=== PATIENT | female | born 1985 | race Caucasian/White ===

== ENCOUNTER → 2018-02-11 | Outpatient (CLI) | payer OTHER ==
--- NOTE | 2018-02-11 18:33 | US ---
EXAMINATION TYPE: US transvaginal DATE OF EXAM: 02/11/2018 COMPARISON: US CLINICAL HISTORY: N94.6 Dysmenorrhea; menstrual cycle change since change in blood thinner to Xarelto TECHNIQUE: . Transvaginal sonographic images were ordered by physician. Date of LMP: 01/21/2018 EXAM MEASUREMENTS: Uterus: 7.8 x 6.1 x 4.9cm Endometrial Stripe: 1.25 cm Right Ovary: 3.0 x 2.8 x 2.3 cm Left Ovary: 3.2 x 1.6 x 2.2 cm 1. Uterus: Retroverted 2. Endometrium: thickness wnl for day 22 LMP 3. Right Ovary: multiple small follicles are noted with color flow within ovary 4. Left Ovary: multiple small follicles with largest = 0.6 x 0.7 x 0.5cm; color flow is seen within ovary 5. Bilateral Adnexa: wnl 6. Posterior cul-de-sac: small amount of free fluid in posterior cul de sac = 2.2 x 4.1 x 0.4cm. IMPRESSION: Minimal free fluid in the pelvis is probably physiologic. No solid adnexal mass. Normal e ndometrium.
== END | disposition home or self-care (01) ==
LOC: RADUSWWP 16:45
PROVIDERS: ATTEND Family Medicine
DX: N94.10 Unspecified dyspareunia (principal); N94.6 Dysmenorrhea, unspecified
CPT/HCPCS: 76830

== ENCOUNTER → 2019-01-03 | Outpatient (CLI) | payer OTHER ==
--- NOTE | 2019-01-03 18:33 | US ---
EXAMINATION TYPE: US venous doppler duplex LE LT DATE OF EXAM: 01/03/2019 5:38 PM COMPARISON: US 2016 bilateral CLINICAL HISTORY: M79.662 PAIN LFT LEG, R22.42 SWELLING LFT LEG. Pain and swelling left leg. Hx DVT a nd PE. Patient on xarelto. SIDE PERFORMED: Left TECHNIQUE: The lower extremity deep venous system is examined utilizing real time linear array sonog kole with graded compression, doppler sonography and color-flow sonography. VESSELS IMAGED: External Iliac Vein (EIV) Common Femoral Vein Deep Femoral Vein Greater Saphenous Vein * Femoral Vein Popliteal Vein Small Saphenous Vein * Proximal Calf Veins (* superficial vessels) Left Leg: Chronic wall changes seen from proximal calf veins extending superiorly to common femoral vein. Non-occlusive thrombus visualized at these levels. 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 No new or acute th rombus clearly seen.
== END | disposition home or self-care (01) ==
LOC: RADUSWWP 16:58
PROVIDERS: ATTEND Internal Medicine Hematology & Oncology
DX: I82.512 Chronic embolism and thrombosis of left femoral vein (principal)

== ENCOUNTER → 2019-07-18 | Outpatient (CLI) | payer OTHER ==
[2019-07-18 07:54] LABS: Basophils # (A) 0.1 k/uL (0-0.2); Basophils % (A) 2 %; Eosinophils # (A) 0.1 k/uL (0-0.7); Eosinophils % (A) 2 %; HCT 38.1 % (34.0-46.0); HGB 12.1 gm/dL (11.4-16.0); Lymphocytes # (A) 1.9 k/uL (1.0-4.8); Lymphocytes % (A) 38 %; MCH 26.7 pg (25.0-35.0); MCHC 31.9 g/dL (31.0-37.0); MCV 83.8 fL (80.0-100.0); Mean Platelet Volume 7.6; Monocytes # (A) 0.3 k/uL (0-1.0); Monocytes % (A) 6 %; Neutrophils # (A) 2.6 k/uL (1.3-7.7); Neutrophils % (A) 51 %; Platelet Count 310 k/uL (150-450); RBC 4.54 m/uL (3.80-5.40); RDW 15.3 % (11.5-15.5); WBC 5.2 k/uL (3.8-10.6)
== END | disposition home or self-care (01) ==
LOC: LABPAT 07:38
PROVIDERS: ATTEND Obstetrics & Gynecology
DX: Z01.812 Encounter for preprocedural laboratory examination (principal)
CPT/HCPCS: 36415; 85025

== ENCOUNTER 2019-07-25 07:02 | Day surgery (SDC) | payer OTHER ==
[2019-07-20 13:19] VITALS: BMI 37.0
[~2019-07-25 07:02] MED LIST: DEXAMETHASONE SOD PHOSPHATE 10 MG/ML 1 ML VIAL IV ONE; LACTATED RINGERS 1,000 ML IV SCH; LIDOCAINE 1% 20 ML VIAL (10MG/ML) FOR IV START INTRADERMA PRN; MIDAZOLAM 2 MG/2 ML VIAL IV PRN; ONDANSETRON 4 MG/2 ML VIAL IVP ONE; Pre Op ABX Message 1 EACH MISC MISCELLANE ONE; fentaNYL (PF) 50 MCG/ML 2 ML AMP IV PRN
--- NOTE | 2019-07-25 07:54 | P.HPOB ---
History of Present Illness H&P Date: 07/25/19 Chief Complaint: Menorrhagia, family planning, dysmenorrhea 34-year-old presents for D&C, hysteroscopy, endometrial ablation with NovaSure and laparoscopic tubal ligation. Review of Systems All systems: negative Constitutional: Denies chills, Denies fever Eyes: denies blurred vision, denies pain Ears, nose, mouth and throat: Denies headache, Denies sore throat Cardiovascular: Denies chest pain, Denies shortness of breath Respiratory: Denies cough Gastrointestinal: Denies abdominal pain, Denies diarrhea, Denies nausea, Denies vomiting Genitourinary: Denies dysuria, Denies hematuria Musculoskeletal: Denies myalgias Integumentary: Denies pruritus, Denies rash Neurological: Denies numbness, Denies weakness Psychiatric: Denies anxiety, Denies depression Endocrine: Denies fatigue, Denies weight change Past Medical History Past Medical History: Blood Disorder, Deep Vein Thrombosis (DVT), GERD/Reflux, Pulmonary Embolus (PE) Additional Past Medical History / Comment(s): FACTOR 5 - HX OF DVT LEFT LEG & PE X3., STATES SHE MAY HAVE ALPHA -1 ., MIGRAINES, STATES HEAVY PAINFUL MENSTRUAL PERIODS. History of Any Multi-Drug Resistant Organisms: None Reported Past Surgical History: Section, Cholecystectomy, Tonsillectomy Past Anesthesia/Blood Transfusion Reactions: No Reported Reaction, Motion Sickness Past Psychological History: Depression Smoking Status: Never smoker Past Alcohol Use History: Rare Past Drug Use History: None Reported - Past Family History Mother Family Medical History: No Reported History Medications and Allergies Home Medications Medication Instructions Recorded Confirmed Type Cetirizine HCl [Zyrtec] 10 mg PO HS 07/20/19 07/25/19 History Cholecalciferol (Vitamin D3) 2,000 unit PO DAILY 07/20/19 07/25/19 History [Vitamin D3] FLUoxetine HCL [PROzac] 20 mg PO DAILY 07/20/19 07/25/19 History Multivitamins, Thera [Multivitamin 1 tab PO DAILY 07/20/19 07/25/19 History (formulary)] Rivaroxaban [Xarelto] 20 mg PO DAILY 07/20/19 07/25/19 History Allergies Allergy/AdvReac Type Severity Reaction Status Date / Time No Known Allergies Allergy Verified 07/25/19 07:35 Exam Osteopathic Statement: *. No significant issues noted on an osteopathic structural exam other than those noted in the History and Physical/Consult. Vital Signs Temp Pulse Resp BP Pulse Ox 07/25/19 07:32 97.2 F L 71 16 115/68 99 Heart: Regular rate and rhythm Lungs: Clear to auscultation bilaterally Abdomen: Soft, nontender Extremities: Negative Homans sign. Assessment and Plan (1) Family planning Current Visit: Yes Status: Acute Code(s): Z30.09 - ENCOUNTER FOR OT GENERAL CNSL AND ADVICE ON CONTRACEPTION SNOMED Code(s): 533231552 (2) Menorrhagia Current Visit: Yes Status: Acute Code(s): N92.0 - EXCESSIVE AND FREQUENT MENSTRUATION WITH REGULAR CYCLE SNOMED Code(s): 386712404 (3) Factor V Leiden Current Visit: Yes Status: Acute Code(s): D68.51 - ACTIVATED PROTEIN C RESISTANCE SNOMED Code(s): 279048660 Plan: 1. D&C, hysteroscopy, endometrial ablation with NovaSure and laparoscopic tubal ligation 2. She will restart her Xarelto later today or tomorrow morning
[2019-07-25] MEDS ORDERED: SCOPOLAMINE 1.5MG/72HR PATCH TRANSDERM ONE (07:59)
[2019-07-25] MEDS ORDERED: LIDOCAINE 1% INJ 10MG/ML (20 ML MDV) ONE (08:32)
[2019-07-25] MEDS ORDERED: PROPOFOL 10 MG/ML 20 ML VIAL IV ONE (08:32)
[2019-07-25] MEDS ORDERED: GLYCOPYRROLATE 0.2 MG/ML 2 ML VIAL ONE (08:32)
[2019-07-25] MEDS ORDERED: SUCCINYLCHOLINE CHLORIDE VIAL 200 MG/10 ML VIAL IV ONE (08:32)
[2019-07-25] MEDS ORDERED: KETOROLAC 30 MG/ML 1 ML VIAL ONE (08:32)
[2019-07-25] MEDS ORDERED: fentaNYL (PF) 50 MCG/ML 2 ML AMP ONE (08:32)
[2019-07-25] MEDS ORDERED: ROCURONIUM BROMIDE 10 MG/ML 10 ML VIAL IV ONE (08:32)
[2019-07-25] MEDS ORDERED: MIDAZOLAM 2 MG/2 ML VIAL ONE (08:32)
[2019-07-25] MEDS ORDERED: NEOSTIGMINE 1 MG/ML 10 ML VIAL ONE (08:32)
[2019-07-25] MEDS ORDERED: BUPIVACAINE (PF) 0.25% 30 ML VIAL SQ ONE (09:19)
--- NOTE | 2019-07-25 09:33 | P.OP ---
Date of Procedure: 07/25/19 Preoperative Diagnosis: 1. Menorrhagia 2. Family planning Postoperative Diagnosis: 1. Menorrhagia 2. Family planning Procedure(s) Performed: D&C, hysteroscopy, endometrial ablation with NovaSure, laparoscopic tubal ligation Anesthesia: KELTON Surgeon: Akosua Martinez Estimated Blood Loss (ml): 3 IV fluids (ml): 450 Urine output (ml): 100 Pathology: other (Endometrial curettings) Condition: stable Disposition: PACU Operative Findings: Normal uterus, fallopian tubes and ovaries, though the left adnexa is slightly scarred to the left pelvic sidewall. Uterus sounded to 10 cm, cavity length was 6.5 cm, width was 4.8 cm, 172 [address] and time of ablation was 1 minute and 10 seconds. Adequate ablation noted after the NovaSure. Description of Procedure: Patient is taken the operating room where general anesthesia was obtained without difficulty. She was prepped and draped in normal sterile fashion dorsal lithotomy position, legs placed in the candy cane stirrups. Bladder was drained of all urine. Weighted speculum placed in the vagina and the anterior lip the cervix was grasped with serial tooth tenaculum. The uterus sounded to 10 cm and the cervix under 3.5 cm making the cavity length 6.5 cm. The cervix was dilated to #8 Hegar dilator. Hysteroscopy was then performed. Both ostia were visualized and there was a smooth contour of the uterus. Sharp curet was then gently used to obtain endometrial curettings. The NovaSure was introduced into the uterus with a cavity length of 6.5 cm, width 4.8 cm. after cavity assessment was passed, the time of ablation was 70 seconds at 172 W. Hysteroscopy was again performed and adequate ablation was noted. A [employer] manipulator was then placed. Attention was then turned to the abdomen and gloves were changed. A 10 mm infraumbilical incision was made the scalpel and 10 mm optical trocar was placed under direct visualization. A 5 mm suprapubic Incision was made and a 5 mm optical trocar was placed under direct visualization. Survey of the pelvis revealed normal uterus tubes and ovaries, the left adnexa is slightly adhered to the left pelvic sidewall. The left fallopian tube was grasped with a Kleppinger and fulgurated 2-3 cm on this side in the ampullar portion. The right fallopian tube was grasped with a Kleppinger and fulgurated 2-3 cm in the ampullar portion. All instruments were then removed from the abdomen and vagina. The 10 mm infraumbilical incision was closed with 0 Vicryl and the fascial layer and then 4-0 Vicryl in a subcuticular fashion. The 5 mm incision was closed with 4- 0 Vicryl in a subcuticular fashion. Patient tolerated procedure well, sponge and instrument counts correct 2 and she was taken to recovery room in stable condition.
[2019-07-25 09:38] VITALS: TEMP 96.8
[2019-07-25] MEDS ORDERED: LACTATED RINGERS 1,000 ML IV ONE (10:15)
[2019-07-25 10:48] VITALS: PULSE 56; RESP 18
[2019-07-25 11:34] VITALS: BP 98/56
== END 2019-07-25 11:30 | disposition home or self-care (01) ==
LOC: OR 07:02
PROVIDERS: ATTEND Obstetrics & Gynecology
DX: Z30.2 Encounter for sterilization (principal); N92.0 Excessive and frequent menstruation with regular cycle; N94.6 Dysmenorrhea, unspecified; G43.909 Migraine, unspecified, not intractable, without status migrainosus; K21.9 Gastro-esophageal reflux disease without esophagitis; F32.9 Major depressive disorder, single episode, unspecified; D68.51 Activated protein C resistance; Z79.01 Long term (current) use of anticoagulants; Z79.899 Other long term (current) drug therapy; Z90.49 Acquired absence of other specified parts of digestive tract; Z90.89 Acquired absence of other organs; Z86.711 Personal history of pulmonary embolism; Z86.718 Personal history of other venous thrombosis and embolism
CPT/HCPCS: 81025; 58563; 58670; J2250; J0330; J1100; J2710; J2405; J2001; J3010; J1885; J2704; 88305

== ENCOUNTER → 2021-06-05 | Outpatient (CLI) | payer OTHER ==
--- NOTE | 2021-06-05 13:52 | CT ---
EXAMINATION TYPE: CT chest wo con DATE OF EXAM: 06/05/2021 COMPARISON: 04/23/2016 HISTORY: Lung nodules. Melanoma of skin right removed 05-17-21. CT DLP: 467.3 mGycm, Automated exposure control for dose reduction was used. CONTRAST: None TECHNIQUE: Axial images were obtained at 5 mm thick sections. Reconstructed images are reviewed on Sudiksha computer in the coronal plane. FINDINGS: Portion of the thyroid visualized is normal. There is a tiny subpleural nodule measuring 0.3 cm anterior right midlung. Series 4 image 31. Finding s present previously and stable. Density measuring 0.5 cm in the periphery of the right mid to lower lung field. Series 4 image 36. No enlarged mediastinal or hilar adenopathy is evident. The ascending aorta diameter at the level o f the main pulmonary artery is 3.5 cm. The main pulmonary artery diameter at the bifurcation is 2.[address] sections are obtained through the upper abdomen. Abdomen is essentially unremarkable. IMPRESSIONS: 1. Small stable nodular densities. No enlarging or new nodular densities are evident.
== END | disposition home or self-care (01) ==
LOC: RADCTMAIN 12:05
PROVIDERS: ATTEND Surgery
DX: R91.8 Other nonspecific abnormal finding of lung field (principal); Z85.828 Personal history of other malignant neoplasm of skin
CPT/HCPCS: 71250

== ENCOUNTER → 2021-11-18 | Outpatient (CLI) | payer OTHER ==
--- NOTE | 2021-11-18 16:15 | US ---
EXAMINATION TYPE: US venous doppler duplex LE BI DATE OF EXAM: 11/18/2021 3:59 PM COMPARISON: 01/03/2019 CLINICAL HISTORY: 36-year-old female M79.662,R22.42 PAIN AND SWELLING LOWER LIMB,[id number],R22.41 PA. Le ft leg and right ankle pain, history of DVT, patient on blood thinners SIDE PERFORMED: Bilateral TECHNIQUE: The lower extremity deep venous system is examined utilizing real time linear array sonog kole with graded compression, doppler sonography and color-flow sonography. FINDINGS: VESSELS IMAGED: Common Femoral Vein Deep Femoral Vein Greater Saphenous Vein * Femoral Vein Popliteal Vein Small Saphenous Vein * Proximal Calf Veins (* superficial vessels) Right Leg: Appears negative for DVT Left Leg: Appears negative for acute DVT, chronic changes with internal echoes within popliteal vein as seen on previous ultrasound IMPRESSION: 1. No evidence for DVT within the right lower extremity imaged from the groin to the upper calf. 2. Unchanged mild chronic, nonocclusive DVT versus chronic wall changes within the left popliteal vei n. No evidence for acute DVT left lower extremity imaged down to the knee.
[2021-11-19 04:26] LABS: Folate, Serum >20.00 ng/mL (4.40-31.00)
== END | disposition home or self-care (01) ==
LOC: RADUSWWP 15:27
PROVIDERS: ATTEND Internal Medicine Hematology & Oncology
DX: M79.662 Pain in left lower leg (principal); M79.661 Pain in right lower leg; R60.9 Edema, unspecified; Z71.3 Dietary counseling and surveillance; I26.99 Other pulmonary embolism without acute cor pulmonale
CPT/HCPCS: 82306; 82607; 82746; 84439; 84443; 84479; 93970

== ENCOUNTER → 2023-10-14 | Outpatient (CLI) | payer OTHER ==
--- NOTE | 2023-10-15 08:22 | MM ---
Reason for Exam: Screening (asymptomatic). Baseline mammogram. Patient History: Menarche at age 12. First Full-Term at age 22. Patient has history of breast feeding. Last menstrual period: 10/01/2023 Risk Values: Radha 5 year model risk: 0.4%. NCI Lifetime model risk: 10.0%. Prior Study Comparison: Patient's first Mammogram. Tissue Density: The breast tissue is heterogeneously dense. This may lower the sensitivity of mammography. Findings: Analyzed By CAD. There is no suspicious group of microcalcifications or new suspicious mass in either breast. Overall Assessment: Benign, BI-RAD 2 Management: Screening Mammogram of both breasts in 1 year. . Patient should continue monthly self-breast exams. A clinical breast exam by your physician is recommended on an annual basis. This exam should not preclude additional follow-up of suspicious palpable abnormalities. Note on Radha scores and lifetime risk: 1. A Radha score greater than 3% is considered moderate risk. If this is the case, consider specialist referral to assess eligibility for a risk reducing agent. 2. If overall lifetime risk for the development of breast cancer is 20% or higher, the patient may qualify for future screening with alternating mammogram and breast MRI. Electronically signed and approved by: Jewel Pimentel M.D. Radiologis
== END | disposition home or self-care (01) ==
LOC: RADMAMWWP 06:56
PROVIDERS: ATTEND Obstetrics & Gynecology
DX: Z12.31 Encounter for screening mammogram for malignant neoplasm of breast (principal)
CPT/HCPCS: 77063; 77067

== ENCOUNTER → 2024-04-06 | Outpatient (CLI) | payer OTHER ==
--- NOTE | 2024-04-08 11:42 | MR ---
EXAMINATION TYPE: MR cervical spine wo con DATE OF EXAM: 04/06/2024 9:16 PM CLINICAL INDICATION:Female, 38 years old with history of M54.12 RADICULOPATHY CERVICAL REGOIN; PHH, N arabella pain COMPARISON: 04/23/2016. TECHNIQUE: Multi planar, multi sequence imaging was performed utilizing: T1-weighted, T2-weighted, an d turbo inversion recovery imaging of the cervical spine. IV Contrast: cc (none if empty) FINDINGS: Alignment: The cervical vertebral bodies have preserved heights. Alignment is within normal limits gi anupam patient positioning. Bones: Osteophytes and disc space narrowing most pronounced at the C5-C7 vertebral levels. Cord: The spinal cord is unremarkable with regards to their signal intensity and morphology. Discs: Intervertebral disc signal is maintained. C2-C3: No significant disc pathology. The spinal canal is patent. No neural foraminal stenosis. C3-C4: No significant disc pathology. The spinal canal is patent. No neural foraminal stenosis. C4-C5: No significant disc pathology. The spinal canal is patent. No neural foraminal stenosis. C5-C6: No significant disc pathology. The spinal canal is patent. No neural foraminal stenosis. C6-C7: No significant disc pathology. The spinal canal is patent. No neural foraminal stenosis. C7-T1: No significant disc pathology. The spinal canal is patent. No neural foraminal stenosis. Other: Prominent lingual tonsils IMPRESSION: 1. No evidence for disc herniation or significant spinal canal stenosis. 2. Mild disc degeneration with associated osteoarthritic changes.
== END | disposition home or self-care (01) ==
LOC: RADMRIMAIN 20:40
PROVIDERS: ATTEND Neurological Surgery
DX: M47.22 Other spondylosis with radiculopathy, cervical region (principal); M50.10 Cervical disc disorder with radiculopathy, unspecified cervical region
CPT/HCPCS: 72141

== ENCOUNTER 2024-10-31 13:49 | Emergency (ER) | payer OTHER ==
[2024-10-31 14:33] LABS: Basophils % (A) 1 %; Eosinophils # (A) 0.1 k/uL (0-0.7); Eosinophils % (A) 2 %; HCT 43.5 % (34.0-46.0); Lymphocytes # (A) 1.7 k/uL (1.0-4.8); Lymphocytes % (A) 32 %; MCH 30.2 pg (25.0-35.0); MCHC 32.2 g/dL (31.0-37.0); MCV 93.9 fL (80.0-100.0); Mean Platelet Volume 8.1; Monocytes # (A) 0.3 k/uL (0-1.0); Monocytes % (A) 6 %; Neutrophils # (A) 3.2 k/uL (1.3-7.7); Neutrophils % (A) 59 %; Platelet Count 299 k/uL (150-450); RBC 4.63 m/uL (3.80-5.40); RDW 12.9 % (11.5-15.5); WBC 5.5 k/uL (3.8-10.6)
[2024-10-31 14:43] LABS: INR 0.9 (<1.2); Partial Thromboplastin Time 23.7 sec (22.0-30.0); Prothrombin Time 10.3 sec (10.0-12.5)
[2024-10-31 14:44] LABS: ALT 36 U/L (4-34); AST 23 U/L (14-36); African American GFR (CKD) >90 (>60 ml/min/1.73 sqM); Albumin 4.5 g/dL (3.5-5.0); Alkaline Phosphatase 56 U/L (38-126); Anion Gap 7 mmol/L; Blood Urea Nitrogen 8 mg/dL (7-17); Calcium 9.9 mg/dL (8.4-10.2); Carbon Dioxide 27 mmol/L (22-30); Chloride 107 mmol/L (98-107); Glucose 87 mg/dL (74-99); Magnesium 2.1 mg/dL (1.6-2.3); Non-African American GFR(CKD) >90 (>60 ml/min/1.73 sqM); Potassium 4.8 mmol/L (3.5-5.1); Sodium 141 mmol/L (137-145); Total Bilirubin 0.5 mg/dL (0.2-1.3); Total Protein 7.4 g/dL (6.3-8.2)
--- NOTE | 2024-10-31 15:09 | XR ---
EXAMINATION TYPE: XR chest 2V DATE OF EXAM: 10/31/2024 2:44 PM COMPARISON: Chest CT June 05, 2021 CLINICAL INDICATION: Female, 39 years old with history of dysrhythmia, TECHNIQUE: Frontal and lateral views of the chest are obtained. FINDINGS: There is no focal air space opacity, pleural effusion, or pneumothorax seen. The cardiac silhouette size is stable and within normal limits. The osseous structures are intact. Cholecystect saira clips are redemonstrated. IMPRESSION: No acute cardiopulmonary process. [facility], , 10/31/2024 3:07 PM
--- NOTE | 2024-10-31 16:46 | ED ---
Arrhythmia/Palpitations HPI - General Chief Complaint: Arrhythmia/Palpitations Stated Complaint: chest pain, Time Seen by Provider: 10/31/24 16:08 Source: patient, RN notes reviewed, old records reviewed Mode of arrival: ambulatory Limitations: no limitations - History of Present Illness Initial Comments: This is a 39-year-old female to the ER today for evaluation regards to palpitations feels like his heart is beating in her chest extra heartbeats, no prior cardiac history no prior abnormal EKG she has occasional pain for the last 2 days. 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 No current shortness of breath no sweating when these episodes occur. Mainly related to palpitations with occasional chest tightness MD Complaint: palpitations -: days(s) (2) Context: occurred during rest Arrhythmia History: other (0) Associated Symptoms: chest pain (Occasional) Treatments Prior to Arrival: other (0) - Related Data Home Medications Medication Instructions Recorded Confirmed Cetirizine HCl [Zyrtec] 10 mg PO HS 07/20/19 10/31/24 Cholecalciferol (Vitamin D3) 50 mcg PO DAILY 07/20/19 10/31/24 [Vitamin D3] Aspirin EC [Ecotrin Low Dose] 81 mg PO HS 10/31/24 10/31/24 Folic Acid 0.8 mg PO DAILY 10/31/24 10/31/24 Levothyroxine Sodium [Synthroid] 112 mcg PO AC-[id number] 10/31/24 10/31/24 Magnesium Oxide [Magnesium] 500 mg PO DAILY 10/31/24 10/31/24 Melatonin 10 mg PO HS 10/31/24 10/31/24 Multi-Source Potassium(Otc) 1 tab PO DAILY 10/31/24 10/31/24 Multivit with Calcium,Iron,Min 1 tab PO DAILY 10/31/24 10/31/24 [Women's Multivitamin] Rivaroxaban [Xarelto] 10 mg PO HS 10/31/24 10/31/24 buPROPion XL [Wellbutrin XL] 300 mg PO DAILY 10/31/24 10/31/24 methocarbamoL [Robaxin] 500 mg PO HS 10/31/24 10/31/24 traZODone HCL 100 mg PO HS 10/31/24 10/31/24 Allergies Allergy/AdvReac Type Severity Reaction Status Date / Time No Known Allergies Allergy Verified 10/31/24 17:27 Review of Systems ROS Statement: Those systems with pertinent positive or pertinent negative responses have been documented in the HPI. ROS Other: All systems not noted in ROS Statement are negative. 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 Absent: scleral icterus, c onjunctival injection, periorbital swelling ENT exam: Present: normal exam, mucous membranes moist Neck exam: Present: normal inspection. Absent: tenderness, meningismus, lymphadenopathy Respiratory exam: Present: normal lung sounds bilaterally. Absent: respiratory distress, wheezes, rales, rhonchi, stridor Cardiovascular Exam: Present: regular rate, normal rhythm, normal heart sounds. Absent: systolic murmur, diastolic murmur, rubs, gallop, clicks GI/Abdominal exam: Present: soft, normal bowel sounds. Absent: distended, tenderness, guarding, rebound, rigid Extremities exam: Present: normal inspection, full ROM, normal capillary refill. Absent: tenderness, pedal edema, joint swelling, calf tenderness Back exam: Present: normal inspection Neurological exam: Present: alert, oriented X3, CN II-XII intact Psychiatric exam: Present: normal affect, normal mood Skin exam: Present: warm, dry, intact, normal color. Absent: rash Course Vital Signs 10/31/24 10/31/24 13:56 15:49 Temperature 98.5 F Pulse Rate 79 64 Respiratory 20 16 Rate Blood Pressure 116/82 119/73 O2 Sat by Pulse 98 98 Oximetry - Reevaluation(s) Reevaluation #1: 10/31/24 17:21 Medical records reviewed No prior ER visits for chest pain No prior cardiac evaluation Reevaluation #2: 10/31/24 17:22 Patient does feel symptoms are improved Patient symptoms are occasional here in the emergency department yet Patient does have PACs on rhythm strip here in the ER Patient continues to feel improved no chest pain and feels comfortable going home, will pursue outpatient monitor Reevaluation #3: 10/31/24 17:22 Patient informed of results questions answered Reevaluation #4: Was pt. sent in by a medical professional or institution (, SON, GRADUATE INTERN, urgent care, hospital, or [facility]...) When possible be specific @ -no Did you speak to anyone other than the patient for history (EMS, parent, family, police, friend...)? What history was obtained from this source @ -no Did you review nursing and triage notes (agree or disagree)? Why? @ -agree Are old charts reviewed (outside hosp., previous admission, EMS record, old EKG, old radiological studies, urgent care reports/EKG's, [facility] records)? Report findings @ -yes Differential Diagnosis (chest pain, altered mental status, abdominal pain women, abdominal pain men, vaginal bleeding, weakness, fever, dyspnea, syncope, headache, dizziness, GI bleed, back pain, seizure, CVA, palpatations, mental health, musculoskeletal)? @ -prior EKG interpreted by me (3pts min.). @ -yes X-rays interpreted by me (1pt min.). @ -yes negative for acute disease CT interpreted by me (1pt min.). @ -no U/S interpreted by me (1pt. min.). @ -no What testing was considered but not performed or refused? (CT, X-rays, U/S, labs)? Why? @ -none What meds were considered but not given or refused? Why? @ -none Did you discuss the management of the patient with other professionals (professionals i.e. SON Sen, GRADUATE INTERN, lab, RT, psych nurse, social media designer, air and water filler, teacher, public records officer, case preparer and liner)? Give summary @ -no Was smoking cessation discussed for >3mins.? @ -no Was critical care preformed (if so, how long)? @ -no Were there social determinants of health that impacted care today? How? (Homelessness, low income, unemployed, alcoholism, drug addiction, transportation, low edu. Level, literacy, decrease access to med. care, longterm, rehab)? @ -none Was there de-escalation of care discussed even if they declined (Discuss DNR or withdrawal of care, Hospice)? DNR status @ -no What co-morbidities impacted this encounter? (DM, HTN, Smoking, COPD, CAD, Cancer, CVA, ARF, Chemo, Hep., AIDS, mental health diagnosis, sleep apnea, morbid obesity)? @ -none Was patient admitted / discharged? Hospital course, mention meds given and route, prescriptions, significant lab abnormalities, going to OR and other pertinent info. @ - Undiagnosed new problem with uncertain prognosis? @ -no Drug Therapy requiring intensive monitoring for toxicity (Heparin, Nitro, Insulin, Cardizem)? @ -no Were any procedures done? @ -no Diagnosis/symptom? @ - Acute, or Chronic, or Acute on Chronic? @ -Acute Uncomplicated (without systemic symptoms) or Complicated (systemic symptoms)? @ -Complicated Side effects of treatment? @ -no Exacerbation, Progression, or Severe Exacerbation? @ -exacerbation Poses a threat to life or bodily function? How? (Chest pain, [place], [place], pneumonia, PE, COPD, DKA, ARF, appy, cholecystitis, CVA, Diverticulitis, Homicidal, Suicidal, threat to staff... and all critical care pts) @ -yes Reevaluation #5: Differential Palpitations Ventricular arrhythmias, atrial arrhythmias, myocardial infarction, anemia, thyrotoxicosis, electrolyte imbalance, hypokalemia, pulmonary embolism, pulmonary disease, drugs, alcohol, anxiety, stress.... This is not meant to be an all-inclusive list. EKG Findings - EKG Comments: EKG Findings:: EKG is sinus rhythm 79 TN 168 QRS 103 QTc 397 - EKG Results: EKG: interpreted by JOSE Medical Decision Making - Medical Decision Making 39 female to the ER for evaluation of palpitations with occasional chest pain. Patient has no history of high blood pressure cholesterol diabetes non-smoker no family history of heart disease. Patient does have PACs on the rhythm strip. In the emergency department, no EKG changes or arrhythmia noted, patient is informed of results here in the ER including negative EKG negative troponin and can be discharged home - Lab Data Result diagrams: 10/31/24 13:59 10/31/24 13:59 Lab Results 10/31/24 10/31/24 10/31/24 Range/Units 13:59 13:59 13:59 WBC 5.5 (3.8-10.6) k/uL RBC 4.63 (3.80-5.40) m/uL Hgb 14.0 (11.4-16.0) gm/dL Hct 43.5 (34.0-46.0) % MCV 93.9 (80.0-100.0) fL MCH 30.2 (25.0-35.0) pg MCHC 32.2 (31.0-37.0) g/dL RDW 12.9 (11.5-15.5) % Plt Count 299 (150-450) k/uL MPV 8.1 Neutrophils % 59 % Lymphocytes % 32 % Monocytes % 6 % Eosinophils % 2 % Basophils % 1 % Neutrophils # 3.2 (1.3-7.7) k/uL Lymphocytes # 1.7 (1.0-4.8) k/uL Monocytes # 0.3 (0-1.0) k/uL Eosinophils # 0.1 (0-0.7) k/uL Basophils # 0.0 (0-0.2) k/uL PT 10.3 (10.0-12.5) sec INR 0.9 (<1.2) APTT 23.7 (22.0-30.0) sec Sodium 141 (137-145) mmol/L Potassium 4.8 (3.5-5.1) mmol/L Chloride 107 (98-107) mmol/L Carbon Dioxide 27 (22-30) mmol/L Anion Gap 7 mmol/L BUN 8 (7-17) mg/dL Creatinine 0.71 (0.52-1.04) mg/dL Est GFR (CKD-EPI)AfAm >90 (>60 ml/min/1.73 sqM) Est GFR (CKD-EPI)NonAf >90 (>60 ml/min/1.73 sqM) Glucose 87 (74-99) mg/dL Calcium 9.9 (8.4-10.2) mg/dL Magnesium 2.1 (1.6-2.3) mg/dL Total Bilirubin 0.5 (0.2-1.3) mg/dL AST 23 (14-36) U/L ALT 36 H (4-34) U/L Alkaline Phosphatase 56 (38-126) U/L Troponin I (0.000-0.034) ng/mL Total Protein 7.4 (6.3-8.2) g/dL Albumin 4.5 (3.5-5.0) g/dL 10/31/24 Range/Units 13:59 WBC (3.8-10.6) k/uL RBC (3.80-5.40) m/uL Hgb (11.4-16.0) gm/dL Hct (34.0-46.0) % MCV (80.0-100.0) fL MCH (25.0-35.0) pg MCHC (31.0-37.0) g/dL RDW (11.5-15.5) % Plt Count (150-450) k/uL MPV Neutrophils % % Lymphocytes % % Monocytes % % Eosinophils % % Basophils % % Neutrophils # (1.3-7.7) k/uL Lymphocytes # (1.0-4.8) k/uL Monocytes # (0-1.0) k/uL Eosinophils # (0-0.7) k/uL Basophils # (0-0.2) k/uL PT (10.0-12.5) sec INR (<1.2) APTT (22.0-30.0) sec Sodium (137-145) mmol/L Potassium (3.5-5.1) mmol/L Chloride (98-107) mmol/L Carbon Dioxide (22-30) mmol/L Anion Gap mmol/L BUN (7-17) mg/dL Creatinine (0.52-1.04) mg/dL Est GFR (CKD-EPI)AfAm (>60 ml/min/1.73 sqM) Est GFR (CKD-EPI)NonAf (>60 ml/min/1.73 sqM) Glucose (74-99) mg/dL Calcium (8.4-10.2) mg/dL Magnesium (1.6-2.3) mg/dL Total Bilirubin (0.2-1.3) mg/dL AST (14-36) U/L ALT (4-34) U/L Alkaline Phosphatase (38-126) U/L Troponin I <0.012 (0.000-0.034) ng/mL Total Protein (6.3-8.2) g/dL Albumin (3.5-5.0) g/dL - EKG Data -: EKG Interpreted by Ca - Radiology Data Radiology results: report reviewed (Chest x-ray is negative for acute disease), image reviewed Disposition Clinical Impression: Palpitations Disposition: HOME SELF-CARE Condition: Good Instructions (If sedation given, give patient instructions): Heart Palpitations (ED) Is patient prescribed a controlled substance at d/c from ED?: No Referrals: Juan Man [Primary Care Provider] - 1-2 days [facility] [Provider Group] - 1-2 days Time of Disposition: 17:30
[2024-10-31 17:51] VITALS: BP 104/67; PULSE 79; RESP 18; TEMP 98.2
== END 2024-10-31 17:51 | disposition home or self-care (01) ==
LOC: EC 13:49
DX: R00.2 Palpitations (principal); Z86.718 Personal history of other venous thrombosis and embolism
CPT/HCPCS: 36415; 71046; 80053; 83735; 84484; 85025; 85610; 85730; 93005; 99285

== ENCOUNTER 2024-11-09 10:26 | Observation (INO) | payer OTHER ==
--- NOTE | 2024-11-09 10:50 | ED ---
Arrhythmia/Palpitations HPI - General Chief Complaint: Arrhythmia/Palpitations Stated Complaint: Palpitations Time Seen by Provider: 11/09/24 10:47 Source: patient, RN notes reviewed Mode of arrival: ambulatory Limitations: no limitations - History of Present Illness Initial Comments: 39-year-old female presenting for heart palpitations x 2 weeks. Reports feeling as though is beating fast with mild intermittent discomfort and shortness of breath. She was seen in the ER 1 week ago where they discharged her with PACs and she followed up with Dr. Rosas financial investigator last Thursday who recommended that she come to the ER for admission for a Holter monitor and echocardiogram because he told her that these tests would not be covered by her insurance on an outpatient basis. 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 States she had a negative D-dimer [address] Joy and her thyroid dose was adjusted yesterday. - Related Data Home Medications Medication Instructions Recorded Confirmed Cetirizine HCl [Zyrtec] 10 mg PO HS 07/20/19 11/09/24 Cholecalciferol (Vitamin D3) 50 mcg PO DAILY 07/20/19 11/09/24 [Vitamin D3] Aspirin EC [Ecotrin Low Dose] 81 mg PO HS 10/31/24 11/09/24 Folic Acid 0.8 mg PO DAILY 10/31/24 11/09/24 Magnesium Oxide [Magnesium] 500 mg PO DAILY 10/31/24 11/09/24 Melatonin 10 mg PO HS 10/31/24 11/09/24 Multi-Source Potassium(Otc) 1 tab PO DAILY 10/31/24 11/09/24 Multivit with Calcium,Iron,Min 1 tab PO DAILY 10/31/24 11/09/24 [Women's Multivitamin] Rivaroxaban [Xarelto] 10 mg PO HS 10/31/24 11/09/24 buPROPion XL [Wellbutrin XL] 300 mg PO DAILY 10/31/24 11/09/24 methocarbamoL [Robaxin] 500 mg PO HS 10/31/24 11/09/24 traZODone HCL 100 mg PO HS 10/31/24 11/09/24 Butalb/APAP/Caff 50-325-40Mg 1 tab PO Q6H PRN 11/09/24 11/09/24 [Fioricet 50-325-40] Levothyroxine Sodium [Synthroid] 125 mcg PO DAILY@0630 11/09/24 11/09/24 Allergies Allergy/AdvReac Type Severity Reaction Status Date / Time No Known Allergies Allergy Verified 11/09/24 11:54 Review of Systems ROS Statement: Those systems with pertinent positive or pertinent negative responses have been documented in the HPI. ROS Other: All systems not noted in ROS Statement are negative. 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 Absent: scleral icterus, conjunctival injection, periorbital swelling ENT exam: Present: normal exam, mucous membranes moist Neck exam: Present: normal inspection. Absent: tenderness, meningismus, lymphadenopathy Respiratory exam: Present: normal lung sounds bilaterally. Absent: respiratory distress, wheezes, rales, rhonchi, stridor Cardiovascular Exam: Present: regular rate, normal rhythm, normal heart sounds. Absent: systolic murmur, diastolic murmur, rubs, gallop, clicks Neurological exam: Present: alert, oriented X3 Psychiatric exam: Present: normal affect, normal mood Skin exam: Present: warm, dry, intact, normal color. Absent: rash Course Vital Signs 11/09/24 11/09/24 11/09/24 10:27 11:53 14:13 Temperature 97.2 F L Pulse Rate 65 63 57 L Respiratory 20 18 18 Rate Blood Pressure 147/85 107/63 108/73 O2 Sat by Pulse 100 97 98 Oximetry 11/09/24 16:21 Temperature Pulse Rate 67 Respiratory 18 Rate Blood Pressure 132/83 O2 Sat by Pulse 95 Oximetry EKG Findings - EKG Results: EKG: interpreted by ERMD (EKG reveals normal sinus rhythm with occasional PACs. Ventricular rate 79 bpm, [place] interval 130, QRS duration 93, QT/QTc 382/416) Medical Decision Making - Medical Decision Making Was pt. sent in by a medical professional or institution ([facility], [employer] [employer], urgent ca re, hospital, or retirement...) When possible be specific @ -Sent by Dr. Rosas for admission Did you speak to anyone other than the patient for history (EMS, parent, family, police, friend...)? What history was obtained from this source @ -No Did you review nursing and triage notes (agree or disagree)? Why? @ -I reviewed and agree with nursing and triage notes Were old charts reviewed (outside hosp., previous admission, EMS record, old EKG, old radiological studies, urgent care reports/EKG's, retirement records)? Report findings @ -Reviewed previous ER visit including negative lab workup Differential Diagnosis (chest pain, altered mental status, abdominal pain women, abdominal pain men, vaginal bleeding, weakness, fever, dyspnea, syncope, headache, dizziness, GI bleed, back pain, seizure, CVA, palpatations, mental health, musculoskeletal)? @ -Differential Palpitations Ventricular arrhythmias, atrial arrhythmias, myocardial infarction, anemia, thyrotoxicosis, electrolyte imbalance, hypokalemia, pulmonary embolism, pulmonary disease, drugs, alcohol, anxiety, stress.... This is not meant to be an all-inclusive list. EKG interpreted by me (3pts min.). @ -As above X-rays interpreted by me (1pt min.). @ -Chest x-ray no acute process CT interpreted by me (1pt min.). @ -None done U/S interpreted by me (1pt. min.). @ -None done What testing was considered but not performed or refused? (CT, X-rays, U/S, labs)? Why? @ -None What meds were considered but not given or refused? Why? @ -None Did you discuss the management of the patient with other professionals (professionals i.e. SON Sen, [employer], lab, RT, psych nurse, social science manager, linen keeper, teacher, community service officer, correctional counselor/case manager)? Give summary @ -I spoke with Mari from [facility] who accepts admission Was smoking cessation discussed for >3mins.? @ -No Was critical care preformed (if so, how long)? @ -No Were there social determinants of health that impacted care today? How? (Homelessness, low income, unemployed, alcoholism, drug addiction, transportation, low edu. Level, literacy, decrease access to med. care, longterm, rehab)? @ -No Was there de-escalation of care discussed even if they declined (Discuss DNR or withdrawal of care, Hospice)? DNR status @ -No What co-morbidities impacted this encounter? (DM, HTN, Smoking, COPD, CAD, Cancer, CVA, ARF, Chemo, Hep., AIDS, mental health diagnosis, sleep apnea, morbid obesity)? @ -None Was patient admitted / discharged? Hospital course, mention meds given and route, prescriptions, significant lab abnormalities, going to OR and other pertinent info. @ -Admitted. 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 Reports intermittent chest pain and shortness of breath. On examination patient is well -appearing no acute distress. EKG reveals normal sinus rhythm with occasional PACs. Lab work unremarkable. Dr. Rosas requests admission for Holter and echocardiogram. Patient will be admitted to medicine with cardiology consult. Case was discussed with the ED attending Dr. Hernandez. Undiagnosed new problem with uncertain prognosis? @ -No Drug Therapy requiring intensive monitoring for toxicity (Heparin, Nitro, Insulin, Cardizem)? @ -No Were any procedures done? @ -No Diagnosis/symptom? @ -Heart palpitations Acute, or Chronic, or Acute on Chronic? @ -Acute Uncomplicated (without systemic symptoms) or Complicated (systemic symptoms)? @ -Uncomplicated Side effects of treatment? @ -No Exacerbation, Progression, or Severe Exacerbation? @ -No Poses a threat to life or bodily function? How? (Chest pain, [place], [place], pneumonia, PE, COPD, DKA, ARF, appy, cholecystitis, CVA, Diverticulitis, Homicidal, Suicidal, threat to staff... and all critical care pts) @ -Unlikely - Lab Data Result diagrams: 11/09/24 10:52 11/09/24 10:52 Lab Results 11/09/24 11/09/24 11/09/24 Range/Units 10:52 10:52 10:52 WBC 6.7 (3.8-10.6) k/uL RBC 4.41 (3.80-5.40) m/uL Hgb 13.3 (11.4-16.0) gm/dL Hct 41.3 (34.0-46.0) % MCV 93.6 (80.0-100.0) fL MCH 30.2 (25.0-35.0) pg MCHC 32.3 (31.0-37.0) g/dL RDW 12.6 (11.5-15.5) % Plt Count 293 (150-450) k/uL MPV 8.4 Neutrophils % 66 % Lymphocytes % 26 % Monocytes % 5 % Eosinophils % 2 % Basophils % 0 % Neutrophils # 4.4 (1.3-7.7) k/uL Lymphocytes # 1.7 (1.0-4.8) k/uL Monocytes # 0.3 (0-1.0) k/uL Eosinophils # 0.1 (0-0.7) k/uL Basophils # 0.0 (0-0.2) k/uL PT 11.2 (10.0-12.5) sec INR 1.0 (<1.2) APTT 25.9 (22.0-30.0) sec Sodium 137 (137-145) mmol/L Potassium 5.2 H (3.5-5.1) mmol/L Chloride 104 (98-107) mmol/L Carbon Dioxide 22 (22-30) mmol/L Anion Gap 11 mmol/L BUN 8 (7-17) mg/dL Creatinine 0.64 (0.52-1.04) mg/dL Est GFR (CKD-EPI)AfAm >90 (>60 ml/min/1.73 sqM) Est GFR (CKD-EPI)NonAf >90 (>60 ml/min/1.73 sqM) Glucose 90 (74-99) mg/dL Calcium 9.5 (8.4-10.2) mg/dL Magnesium 2.0 (1.6-2.3) mg/dL Total Bilirubin 1.0 (0.2-1.3) mg/dL AST 32 (14-36) U/L ALT 21 (4-34) U/L Alkaline Phosphatase 45 (38-126) U/L Troponin I (0.000-0.034) ng/mL Total Protein 7.7 (6.3-8.2) g/dL Albumin 4.6 (3.5-5.0) g/dL TSH 3.090 (0.465-4.680) mIU/L Urine HCG, Qual (Not Detectd) 11/09/24 11/09/24 Range/Units 10:52 10:54 WBC (3.8-10.6) k/uL RBC (3.80-5.40) m/uL Hgb (11.4-16.0) gm/dL Hct (34.0-46.0) % MCV (80.0-100.0) fL MCH (25.0-35.0) pg MCHC (31.0-37.0) g/dL RDW (11.5-15.5) % Plt Count (150-450) k/uL MPV Neutrophils % % Lymphocytes % % Monocytes % % Eosinophils % % Basophils % % Neutrophils # (1.3-7.7) k/uL Lymphocytes # (1.0-4.8) k/uL Monocytes # (0-1.0) k/uL Eosinophils # (0-0.7) k/uL Basophils # (0-0.2) k/uL PT (10.0-12.5) sec INR (<1.2) APTT (22.0-30.0) sec Sodium (137-145) mmol/L Potassium (3.5-5.1) mmol/L Chloride (98-107) mmol/L Carbon Dioxide (22-30) mmol/L Anion Gap mmol/L BUN (7-17) mg/dL Creatinine (0.52-1.04) mg/dL Est GFR (CKD-EPI)AfAm (>60 ml/min/1.73 sqM) Est GFR (CKD-EPI)NonAf (>60 ml/min/1.73 sqM) Glucose (74-99) mg/dL Calcium (8.4-10.2) mg/dL Magnesium (1.6-2.3) mg/dL Total Bilirubin (0.2-1.3) mg/dL AST (14-36) U/L ALT (4-34) U/L Alkaline Phosphatase (38-126) U/L Troponin I <0.012 (0.000-0.034) ng/mL Total Protein (6.3-8.2) g/dL Albumin (3.5-5.0) g/dL TSH (0.465-4.680) mIU/L Urine HCG, Qual Not Detected (Not Detectd) Disposition Clinical Impression: Heart palpitations Disposition: HOME SELF-CARE Condition: Stable Additional Instructions: Please return to the Emergency Department if symptoms worsen or any other concerns. Is patient prescribed a controlled substance at d/c from ED?: No Referrals: Juan Man [Primary Care Provider] - 01/03/25 10:00 am Brett oRsas MD [STAFF PHYSICIAN] - 1-2 days Time of Disposition: 14:42
[2024-11-09 11:22] LABS: Basophils % (A) 0 %; Eosinophils # (A) 0.1 k/uL (0-0.7); Eosinophils % (A) 2 %; HCT 41.3 % (34.0-46.0); HGB 13.3 gm/dL (11.4-16.0); Lymphocytes # (A) 1.7 k/uL (1.0-4.8); Lymphocytes % (A) 26 %; MCH 30.2 pg (25.0-35.0); MCHC 32.3 g/dL (31.0-37.0); MCV 93.6 fL (80.0-100.0); Mean Platelet Volume 8.4; Monocytes # (A) 0.3 k/uL (0-1.0); Monocytes % (A) 5 %; Neutrophils # (A) 4.4 k/uL (1.3-7.7); Neutrophils % (A) 66 %; Platelet Count 293 k/uL (150-450); RBC 4.41 m/uL (3.80-5.40); RDW 12.6 % (11.5-15.5); WBC 6.7 k/uL (3.8-10.6)
[2024-11-09 11:33] LABS: Partial Thromboplastin Time 25.9 sec (22.0-30.0); Prothrombin Time 11.2 sec (10.0-12.5)
--- NOTE | 2024-11-09 11:36 | XR ---
EXAMINATION TYPE: XR chest 2V DATE OF EXAM: 11/09/2024 11:14 AM COMPARISON: 10/31/2024 CLINICAL INDICATION: Female, 39 years old with history of Heart palpitations; [facility] TECHNIQUE: XR chest 2V Frontal and lateral views of the chest. FINDINGS: Lungs/Pleura: There is no evidence of pleural effusion, focal consolidation, or pneumothorax. Pulmonary vascularity: Unremarkable. Heart/mediastinum: Cardiomediastinal silhouette is unremarkable. Musculoskeletal: No acute osseous pathology. Other findings: None IMPRESSION: No acute cardiopulmonary disease/process. [facility], , 11/09/2024 11:34 AM
[2024-11-09 11:40] LABS: ALT 21 U/L (4-34); African American GFR (CKD) >90 (>60 ml/min/1.73 sqM); Anion Gap 11 mmol/L; Blood Urea Nitrogen 8 mg/dL (7-17); Calcium 9.5 mg/dL (8.4-10.2); Carbon Dioxide 22 mmol/L (22-30); Chloride 104 mmol/L (98-107); Glucose 90 mg/dL (74-99); Non-African American GFR(CKD) >90 (>60 ml/min/1.73 sqM); Sodium 137 mmol/L (137-145)
[2024-11-09 12:02] LABS: Albumin 4.6 g/dL (3.5-5.0); Potassium 5.2 mmol/L (3.5-5.1); Total Protein 7.7 g/dL (6.3-8.2)
[2024-11-09 12:03] LABS: AST 32 U/L (14-36); Alkaline Phosphatase 45 U/L (38-126)
[2024-11-09] MEDS ORDERED: MORPHINE SULFATE 4 MG/ML SYRINGE IV PRN (16:59)
[2024-11-09] MEDS ORDERED: Acetaminophen-Codeine 300-30mg TAB PO PRN (16:59)
[2024-11-09] MEDS ORDERED: NALOXONE 0.4 MG/ML 1 ML VIAL IV PRN (16:59)
[2024-11-09] MEDS: ACETAMINOPHEN TAB 325 MG TAB PO PRN (17:29)
--- NOTE | 2024-11-09 18:59 | CA ---
Transthoracic Echo Report Name: Radha Odonnell Age: 39 Gender: F : 1985 Exam Date: 11/09/2024 16:24 Exam Location: [place] [facility] Ht (in): 64 Wt (lb): 215 Ordering Physician: Art Hernandez MD Attending/Referring Phys: Hose Mender Tammy Kiran RDCS Procedure CPT: Indications: PALPITATION Cardiac Hx: Technical Quality: Good Contrast 1: Total Dose (mL): Contrast 2: Total Dose (mL): MEASUREMENTS (Male / Female) Normal Values 2D ECHO LV Diastolic Diameter PLAX 4.8 cm 4.2 - 5.9 / 3.9 - 5.3 cm LV Systolic Diameter PLAX 3.4 cm IVS Diastolic Thickness 1.1 cm 0.6 - 1.0 / 0.6 - 0.9 cm LVPW Diastolic Thickness 1.1 cm 0.6 - 1.0 / 0.6 - 0.9 cm LV Relative Wall Thickness 0.5 RV Internal Dim ED PLAX 4.0 cm LA Systolic Diameter LX 4.0 cm 3.0 - 4.0 / 2.7 - 3.8 cm LV Diastolic Volume MOD 4C 111.0 cm??? LV Systolic Volume MOD 4C 58.7 cm??? LV Ejection Fraction MOD 4C 47.2 % LV Cardiac Index MOD 4C 1636.7 cm???/min???m??? LV Diastolic Length 4C 9.7 cm LV Systolic Length 4C 8.0 cm LV Diastolic Volume MOD 2C 113.2 cm??? LV Systolic Volume MOD 2C 52.2 cm??? LV Ejection Fraction MOD 2C 53.9 % LV Cardiac Index MOD 2C 1907.6 cm???/min???m??? LV Diastolic Length 2C 8.5 cm LV Systolic Length 2C 6.8 cm LA Volume 75.3 cm??? 18 - 58 / 22 - 52 cm??? LA Volume Index 35.1 cm???/m??? 16 - 28 cm???/m??? M-MODE Aortic Root Diameter MM 3.5 cm DOPPLER AV Peak Velocity 131.8 cm/s AV Peak Gradient 7.0 mmHg FINDINGS Left Ventricle Left ventricular ejection fraction is estimated at 55-60 %. Left ventricular cavity size normal. Normal left ventricular systolic function with no obvious regional wall motion abnormalities. Right Ventricle Severe right ventricular dilatation. Unable to estimate the right ventricular systolic pressure. Right Atrium Normal right atrial size. No right atrial thrombus or mass seen. Left Atrium Mildly increased left atrial diameter. Moderately increased left atrial volume. Mildly increased left atrial area. No left atrial thrombus or mass present. Mitral Valve Structurally normal mitral valve. No mitral stenosis, or prolapse.trace to mild mitral regurgitation. Aortic Valve Trileaflet aortic valve. No aortic valve stenosis or regurgitation. Tricuspid Valve Structurally normal tricuspid valve. No tricuspid stenosis, regurgitation or prolapse. Pulmonic Valve Structurally normal pulmonic valve. Trace pulmonic regurgitation. Pericardium No pericardial effusion. Aorta Normal size aortic root and proximal ascending aorta. CONCLUSIONS 1. Normal left ventricular size and systolic function 2. Trace to mild mitral regurgitation Previewed by: Dr. aSdi Granda MD (Electronically Signed) Final Date: 09 November 2024 18:58
[2024-11-10] MEDS: methocarbamoL 500 MG TAB PO SCH (02:14)
[2024-11-10] MEDS: RIVAROXABAN 10 MG TAB PO SCH (02:14)
[2024-11-10] MEDS: ASPIRIN 81 MG PO SCH (02:14)
[2024-11-10 04:02] VITALS: TEMP 97.6
[2024-11-10] MEDS: LEVOTHYROXINE 125 MCG TAB PO SCH (06:07)
[2024-11-10 08:48] VITALS: BP 111/76; PULSE 61; RESP 18
--- NOTE | 2024-11-10 09:45 | P.CRDCN ---
History of Present Illness Consult date: 11/10/24 Reason for Consult (text): Palpitations History of present illness: This is a 39-year-old female patient of Dr. 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 Patient gives history that she has had sensation that her heart is racing since October 30. She came into the emergency center on and was evaluated, discharged home. She had a follow-up in the office with Dr. Rosas on 11/04 and patient was advised to go to the emergency center for fu rther evaluation hospitalization for echocardiogram and a stress echo. Patient complains of palpitations that are constant. She denies lightheadedness dizziness or syncopal episodes. Nothing seems to make the sensation better or worse. She also states she has cough with deep breathing. She has chest pain with the palpitations every few minutes that is very brief and then goes away on its own. She states she is normally very active. She states she feels a sensation more when she is sitting. She states she has chronic lower extremity edema. Blood pressure 111/76, heart rate 61, pulse ox 97% on room air. -EKG: Sinus mechanism with occasional PACs. Telemetry reviewed finding no arrhythmias. -Chest x-ray: No acute process -Laboratory studies: CBC, INR, CMP all unremarkable except for potassium 5.2, troponin negative x 1. TSH is 3.09. -Home cardiac medications: Aspirin 81 mg daily, magnesium 500 mg daily, Xarelto 10 mg at bedtime, also on levothyroxine. -Echocardiogram performed 11/09/2024: Reveals normal left ventricular size and systolic function. Trace to mild mitral regurgitation. Review Of Systems: At the time of my exam: CONSTITUTIONAL: Denies fever or chills. HEENT: Denies blurred vision, vision changes, or eye pain. Denies hemoptysis CARDIOVASCULAR: Denies chest pain. Denies orthopnea. Denies PND. Denies palpitations RESPIRATORY: Denies shortness of breath. GASTROINTESTINAL: Denies abdominal pain. Denies nausea or vomiting. HEMATOLOGIC: Denies bleeding disorders. GENITOURINARY: Denies any blood in urine. SKIN: Denies puritis. Denies rash. Physical examination: Gen: This is a 39-year-old female in no acute distress VS: reviewed HEENT: Head is atraumatic, normocephalic. Pupils equal, round. Sclerae is anicteric. NECK: Supple. No JVD. LUNGS: Clear to auscultation. No wheezes or rhonchi. No intercostal retractions. HEART: Regular rate and rhythm. No murmur. ABDOMEN: Soft No tenderness. EXTREMITIES: No pedal edema. No calf tenderness. NEUROLOGICAL: Patient is awake, alert and oriented x3. Assessment: Palpitations Atypical chest pain, acute coronary syndrome ruled out Factor V Leyden deficiency History of DVT and pulmonary embolisms on Xarelto and aspirin Hypothyroidism Plan: Resume patient's home cardiac medications Schedule patient for stress echocardiogram today Schedule patient for 7-day event monitor Further recommendations to follow based upon clinical course If stress test is unremarkable, patient is cleared for discharge from cardiology and will follow-up with Dr. Rosas in 2 weeks. Nurse practitioner note has been reviewed, I agree with documented findings and plan of care. Patient was seen and examined. Past Medical History Additional Past Medical History / Comment(s): factor V deficiency, alpha 1, MTHFR, Hoshimoto's History of Any Multi-Drug Resistant Organisms: None Reported Past Surgical History: Section, Cholecystectomy, Tonsillectomy Past Anesthesia/Blood Transfusion Reactions: No Reported Reaction Past Psychological History: No Psychological Hx Reported Smoking Status: Never smoker Past Alcohol Use History: Rare Past Drug Use History: None Reported Medications and Allergies Home Medications Medication Instructions Recorded Confirmed Type Cetirizine HCl [Zyrtec] 10 mg PO HS 07/20/19 11/09/24 History Cholecalciferol (Vitamin D3) 50 mcg PO DAILY 07/20/19 11/09/24 History [Vitamin D3] Aspirin EC [Ecotrin Low Dose] 81 mg PO HS 10/31/24 11/09/24 History Folic Acid 0.8 mg PO DAILY 10/31/24 11/09/24 History Magnesium Oxide [Magnesium] 500 mg PO DAILY 10/31/24 11/09/24 History Melatonin 10 mg PO HS 10/31/24 11/09/24 History Multi-Source Potassium(Otc) 1 tab PO DAILY 10/31/24 11/09/24 History Multivit with Calcium,Iron,Min 1 tab PO DAILY 10/31/24 11/09/24 History [Women's Multivitamin] Rivaroxaban [Xarelto] 10 mg PO HS 10/31/24 11/09/24 History buPROPion XL [Wellbutrin XL] 300 mg PO DAILY 10/31/24 11/09/24 History methocarbamoL [Robaxin] 500 mg PO HS 10/31/24 11/09/24 History traZODone HCL 100 mg PO HS 10/31/24 11/09/24 History Butalb/APAP/Caff 50-325-40Mg 1 tab PO Q6H PRN 11/09/24 11/09/24 History [Fioricet 50-325-40] Levothyroxine Sodium [Synthroid] 125 mcg PO DAILY@0630 11/09/24 11/09/24 History Allergies Allergy/AdvReac Type Severity Reaction Status Date / Time No Known Allergies Allergy Verified 11/09/24 11:54 Physical Exam Vitals: Vital Signs Temp Pulse Pulse Resp BP BP Pulse Ox 11/10/24 01:13 97.6 F 79 16 124/86 98 11/10/24 00:53 97.8 F 67 18 120/80 98 11/09/24 22:29 98.1 F 77 18 133/77 98 11/09/24 18:41 73 18 130/85 95 11/09/24 16:21 67 18 132/83 95 11/09/24 14:13 57 L 18 108/73 98 11/09/24 11:53 63 18 107/63 97 11/09/24 10:27 97.2 F L 65 20 147/85 100 Intake and Output 11/09/24 11/10/24 11/10/24 22:59 06:59 14:59 Other: # Voids 1 Weight 97.522 kg Results 11/09/24 10:52 11/09/24 10:52 Cardiac Enzymes 11/09/24 11/09/24 Range/Units 10:52 10:52 AST 32 (14-36) U/L Troponin I <0.012 (0.000-0.034) ng/mL Coagulation 11/09/24 Range/Units 10:52 PT 11.2 (10.0-12.5) sec APTT 25.9 (22.0-30.0) sec CBC 11/09/24 Range/Units 10:52 WBC 6.7 (3.8-10.6) k/uL RBC 4.41 (3.80-5.40) m/uL Hgb 13.3 (11.4-16.0) gm/dL Hct 41.3 (34.0-46.0) % Plt Count 293 (150-450) k/uL Comprehensive Metabolic Panel 11/09/24 Range/Units 10:52 Sodium 137 (137-145) mmol/L Potassium 5.2 H (3.5-5.1) mmol/L Chloride 104 (98-107) mmol/L Carbon Dioxide 22 (22-30) mmol/L BUN 8 (7-17) mg/dL Creatinine 0.64 (0.52-1.04) mg/dL Glucose 90 (74-99) mg/dL Calcium 9.5 (8.4-10.2) mg/dL AST 32 (14-36) U/L ALT 21 (4-34) U/L Alkaline Phosphatase 45 (38-126) U/L Total Protein 7.7 (6.3-8.2) g/dL Albumin 4.6 (3.5-5.0) g/dL Current Medications Generic Name Dose Route Start Last Admin Trade Name Freq PRN Reason Stop Dose Admin Acetaminophen 650 mg 11/09/24 16:59 11/10/24 01:02 Acetaminophen Tab 325 Mg Tab PO 650 mg Q6HR PRN Administration Mild Pain or Fever > 100.5 Acetaminophen/Codeine Phosphate 1 each 11/09/24 16:59 Acetaminophen-Codeine 300-30mg Tab PO Q4HR PRN Moderate Pain (Scale 4 to 6) Aspirin 81 mg 11/10/24 01:53 11/10/24 02:14 Aspirin 81 Mg PO 81 mg HS SHAHRZAD Administration Levothyroxine Sodium 125 mcg 11/10/24 06:00 11/10/24 06:07 Levothyroxine 125 Mcg Tab PO 125 mcg DAILY@0600 SHAHRZAD Administration Methocarbamol 500 mg 11/10/24 01:53 11/10/24 02:14 Methocarbamol 500 Mg Tab PO 500 mg HS SHAHRZAD Administration Morphine Sulfate 4 mg 11/09/24 16:59 Morphine Sulfate 4 Mg/Ml Syringe IV Q4HR PRN Severe Pain (Scale 7 to 10) Naloxone HCl 0.2 mg 11/09/24 16:59 Naloxone 0.4 Mg/Ml 1 Ml Vial IV Q2M PRN Opioid Reversal Rivaroxaban 10 mg 11/10/24 01:54 11/10/24 02:14 Rivaroxaban 10 Mg Tab PO 10 mg HS SHAHRZAD Administration Protocol Intake and Output 11/09/24 11/10/24 11/10/24 22:59 06:59 14:59 Other: # Voids 1 Weight 97.522 kg 11/09/24 10:52 11/09/24 10:52
--- NOTE | 2024-11-10 13:26 | P.HPIM ---
History of Present Illness Patient pleasant 39-year-old female came in with complaints of palpitations. Patient any lightheadedness or syncopal episodes. Patient did have pressure- like chest pain associate with palpitations for few minutes. Palpitations queri ed by themself EKG is sinus rhythm without any acute ST-T wave changes and in sinus rhythm chest x-ray did not show any significant abnormality echocardiogram that was done on fifth of this month showed no significant abnormality. Patient was eval by cardiology patient underwent stress test if that is negative patient will be discharged on an event monitor. Troponins were negative REVIEW OF SYSTEMS: All other systems are negative except those mentioned in the HPI PHYSICAL EXAMINATION: GENERAL: The patient is alert and oriented x3, not in any acute distress. Well developed, well nourished. HEENT: Pupils are round and equally reacting to light. EOMI. No scleral icterus. No conjunctival pallor. Normocephalic, atraumatic. No pharyngeal erythema. No thyromegaly. CARDIOVASCULAR: S1 and S2 present. No murmurs, rubs, or gallops. PULMONARY: Chest is clear to auscultation, no wheezing or crackles. ABDOMEN: Soft, nontender, nondistended, normoactive bowel sounds. No palpable organomegaly. MUSCULOSKELETAL: No joint swelling or deformity. EXTREMITIES: No cyanosis, clubbing, or pedal edema. NEUROLOGICAL: Gross neurological examination did not reveal any focal deficits. SKIN: No rashes. Assessment and plan -Chest pain rule out acute coronary syndromes patient underwent stress test if that is negative patient will be discharged today -Factor V Leyden deficiency with DVTs in the past for which patient is on anticoagulation with Xarelto which we will continue -Hypothyroidism -Palpitations patient will be discharged with 7-day event monitor. Patient is normal sinus rhythm throughout her hospitalization Past Medical History Additional Past Medical History / Comment(s): factor V deficiency, alpha 1, MTHFR, Hoshimoto's History of Any Multi-Drug Resistant Organisms: None Reported Past Surgical History: Section, Cholecystectomy, Tonsillectomy Past Anesthesia/Blood Transfusion Reactions: No Reported Reaction Past Psychological History: No Psychological Hx Reported Smoking Status: Never smoker Past Alcohol Use History: Rare Past Drug Use History: None Reported Medications and Allergies Home Medications Medication Instructions Recorded Confirmed Type Cetirizine HCl [Zyrtec] 10 mg PO HS 07/20/19 11/09/24 History Cholecalciferol (Vitamin D3) 50 mcg PO DAILY 07/20/19 11/09/24 History [Vitamin D3] Aspirin EC [Ecotrin Low Dose] 81 mg PO HS 10/31/24 11/09/24 History Folic Acid 0.8 mg PO DAILY 10/31/24 11/09/24 History Magnesium Oxide [Magnesium] 500 mg PO DAILY 10/31/24 11/09/24 History Melatonin 10 mg PO HS 10/31/24 11/09/24 History Multi-Source Potassium(Otc) 1 tab PO DAILY 10/31/24 11/09/24 History Multivit with Calcium,Iron,Min 1 tab PO DAILY 10/31/24 11/09/24 History [Women's Multivitamin] Rivaroxaban [Xarelto] 10 mg PO HS 10/31/24 11/09/24 History buPROPion XL [Wellbutrin XL] 300 mg PO DAILY 10/31/24 11/09/24 History methocarbamoL [Robaxin] 500 mg PO HS 10/31/24 11/09/24 History traZODone HCL 100 mg PO HS 10/31/24 11/09/24 History Butalb/APAP/Caff 50-325-40Mg 1 tab PO Q6H PRN 11/09/24 11/09/24 History [Fioricet 50-325-40] Levothyroxine Sodium [Synthroid] 125 mcg PO DAILY@0630 11/09/24 11/09/24 History Allergies Allergy/AdvReac Type Severity Reaction Status Date / Time No Known Allergies Allergy Verified 11/09/24 11:54 Physical Exam Vitals: Vital Signs Temp Pulse Pulse Resp BP BP BP 11/10/24 07:00 97.6 F 61 18 111/76 11/10/24 01:13 97.6 F 79 16 124/86 11/10/24 00:53 97.8 F 67 18 120/80 11/09/24 22:29 98.1 F 77 18 133/77 11/09/24 18:41 73 18 130/85 11/09/24 16:21 67 18 132/83 11/09/24 14:13 57 L 18 108/73 Pulse Ox 11/10/24 07:00 97 11/10/24 01:13 98 03/06/25 00:53 98 11/09/24 22:29 98 11/09/24 18:41 95 11/09/24 16:21 95 11/09/24 14:13 98 Intake and Output 11/09/24 11/10/24 11/10/24 22:59 06:59 14:59 Other: # Voids 1 Weight 97.522 kg Results CBC & Chem 7: 11/09/24 10:52 11/09/24 10:52 Thrombosis Risk Factor Assmnt - Choose All That Apply Any of the Below Risk Factors Present?: Yes Each Factor Represents 1 point: Obesity (BMI >25) Other Risk Factors: Yes Each Risk Factor Represents 3 Points: Positive Factor V Leiden Other congenital or acquired thrombophilia - If yes, enter type in comment: No Thrombosis Risk Factor Assessment Total Risk Factor Score: 4 Thrombosis Risk Factor Assessment Level: Moderate Risk
--- NOTE | 2024-11-10 13:27 | P.DS ---
Providers Date of admission: 11/09/24 20:37 Attending physician: Dejah Khanna Consults: 11/09/24 16:59 Consult Physician Urgent Consulting Provider: [facility] Consult Reason/Comments: Heart palpitations Do you want consulting provider notified?: Yes Primary care physician: Juan Henderson [place] Hospital Course: Patient pleasant 39-year-old female came in with complaints of palpitations. Patient any lightheadedness or syncopal episodes. Patient did have pressure- like chest pain associate with palpitations for few minutes. Palpitations queried by themself EKG is sinus rhythm without any acute ST-T wave changes and in sinus rhythm chest x-ray did not show any significant abnormality echocardiogram that was done on fifth of this month showed no significant abnormality. Patient was eval by cardiology patient underwent stress test if that is negative patient will be discharged on an event monitor. Troponins were negative REVIEW OF SYSTEMS: All other systems are negative except those mentioned in the HPI PHYSICAL EXAMINATION: GENERAL: The patient is alert and oriented x3, not in any acute distress. Well developed, well nourished. HEENT: Pupils are round and equally reacting to light. EOMI. No scleral icterus. No conjunctival pallor. Normocephalic, atraumatic. No pharyngeal erythema. No thyromegaly. CARDIOVASCULAR: S1 and S2 present. No murmurs, rubs, or gallops. PULMONARY: Chest is clear to auscultation, no wheezing or crackles. ABDOMEN: Soft, nontender, nondistended, normoactive bowel sounds. No palpable organomegaly. MUSCULOSKELETAL: No joint swelling or deformity. EXTREMITIES: No cyanosis, clubbing, or pedal edema. NEUROLOGICAL: Gross neurological examination did not reveal any focal deficits. SKIN: No rashes. Assessment and plan -Chest pain rule out acute coronary syndromes patient underwent stress test if that is negative patient will be discharged today -Factor V Leyden deficiency with DVTs in the past for which patient is on anticoagulation with Xarelto which we will continue -Hypothyroidism -Palpitations patient will be discharged with 7-day event monitor. Patient is normal sinus rhythm throughout her hospitalization Patient Condition at Discharge: Stable Plan - Discharge Summary Discharge Rx Participant: No New Discharge Prescriptions: Continue Cetirizine HCl [Zyrtec] 10 mg PO HS Cholecalciferol (Vitamin D3) [Vitamin D3] 50 mcg PO DAILY Multivit with Calcium,Iron,Min [Women's Multivitamin] 1 tab PO DAILY Multi-Source Potassium(Otc) 1 tab PO DAILY Folic Acid 0.8 mg PO DAILY Rivaroxaban [Xarelto] 10 mg PO HS Butalb/APAP/Caff 50-325-40Mg [Fioricet 50-325-40] 1 tab PO Q6H PRN PRN Reason: Migraine Headache Melatonin 10 mg PO HS Aspirin EC [Ecotrin Low Dose] 81 mg PO HS methocarbamoL [Robaxin] 500 mg PO HS Magnesium Oxide [Magnesium] 500 mg PO DAILY traZODone HCL 100 mg PO HS buPROPion XL [Wellbutrin XL] 300 mg PO DAILY Levothyroxine Sodium [Synthroid] 125 mcg PO DAILY@0630 Discharge Medication List Cetirizine HCl [Zyrtec] 10 mg PO HS 07/20/19 [History] Cholecalciferol (Vitamin D3) [Vitamin D3] 50 mcg PO DAILY 07/20/19 [History] Aspirin EC [Ecotrin Low Dose] 81 mg PO HS 10/31/24 [History] Folic Acid 0.8 mg PO DAILY 10/31/24 [History] Magnesium Oxide [Magnesium] 500 mg PO DAILY 10/31/24 [History] Melatonin 10 mg PO HS 10/31/24 [History] Multi-Source Potassium(Otc) 1 tab PO DAILY 10/31/24 [History] Multivit with Calcium,Iron,Min [Women's Multivitamin] 1 tab PO DAILY 10/31/24 [History] Rivaroxaban [Xarelto] 10 mg PO HS 10/31/24 [History] buPROPion XL [Wellbutrin XL] 300 mg PO DAILY 10/31/24 [History] methocarbamoL [Robaxin] 500 mg PO HS 10/31/24 [History] traZODone HCL 100 mg PO HS 10/31/24 [History] Butalb/APAP/Caff 50-325-40Mg [Fioricet 50-325-40] 1 tab PO Q6H PRN 11/09/24 [History] Levothyroxine Sodium [Synthroid] 125 mcg PO DAILY@0630 11/09/24 [History] Follow up Appointment(s)/Referral(s): Juan Man [Primary Care Provider] - 01/03/25 10:00 Brett Hughes MD [STAFF PHYSICIAN] - 2 Weeks Activity/Diet/Wound Care/Special Instructions: Please return to the Emergency Department if symptoms worsen or any other concerns. Discharge Disposition: HOME SELF-CARE
--- NOTE | 2024-11-10 13:30 | CA ---
Stress Echo Report Radha Odonnell Age: 39 Gender: F : 1985 Exam Date: 11/10/2024 10:52 Exam Location: [place] [facility] Ht (in): 64 Wt (lb): 215 Ordering Physician: Marium Flores Referring Physician: Sandra REYES Drum Tester: KIM Technologist Procedure CPT: Indication: palpitations, chest pain ICD-9 Codes: Rhythm: Patient History: Cardiac Medications: SEE CHART Medications in past 24 hours: Contrast: N/A Stress Results Protocol: Jarrett Total dose(mL): NA Exercise Duration (min:sec): 8:[address] Depression (mm): 0 Angina Score: 0 Meng Score: 8 METS: 9.7 Resting HR: 81 Resting BP: 120 / 89 Peak HR: 160 Peak BP: 156 / 58 Max Predicted HR: 182 88 % Max Predicted HR Target HR: 155 Double Product: [id number] Stress Summary: The patient's target heart rate was achieved BP Response: Normal Reason for Termination: MAX EXERTION/TARGET HR Cardiac Symptoms: NO SYMPTOMS ECG Analysis Resting ECG: Normal sinus rhythm, normal ECG Stress ECG: No abnormal ST/T wave changes with exercise Arrhythmia: None Echo Analysis Resting Echo: Normal resting echocardiogram. Peak Echo Analysis: Normal wall thickening and motion MEASUREMENTS (Male/Female) Normal Values CONCLUSIONS Patient falls into low-risk group (DTS >= +5). This associates the patient with an annual CV mortality <= 0.5%. Average exercise tolerance with normal electrocardiographic response to exercise Normal stress echocardiogram with no evidence of stress induced ischemia Dr. Sadi Granda MD (Electronically Signed) Final Date: 10 November 2024 13:29
== END 2024-11-10 14:53 | disposition home or self-care (01) ==
LOC: EC 10:26 → 6NMEDSUR 20:37
PROVIDERS: ADMIT Hospitalist; ATTEND Hospitalist
DX: R07.89 Other chest pain (principal); R00.2 Palpitations; D68.2 Hereditary deficiency of other clotting factors; E06.3 Autoimmune thyroiditis; I34.0 Nonrheumatic mitral (valve) insufficiency; R06.02 Shortness of breath; R60.0 Localized edema; R05.9 Cough, unspecified; E66.9 Obesity, unspecified; Z68.36 Body mass index [BMI] 36.0-36.9, adult; Z79.890 Hormone replacement therapy; Z79.82 Long term (current) use of aspirin; Z79.01 Long term (current) use of anticoagulants; Z79.899 Other long term (current) drug therapy; Z86.711 Personal history of pulmonary embolism; Z86.718 Personal history of other venous thrombosis and embolism
CPT/HCPCS: 99285; 36415; 93005 ×2; 93306; 93270; 93351; 80053; 84443; 83735; 84484; 85025; 85610; 85730; 81025; 71046; G0378 ×2

== ENCOUNTER → 2025-02-22 | Outpatient (CLI) | payer OTHER ==
[2025-02-22 14:47] VITALS: BP 117/86; PULSE 77; RESP 16; TEMP 98
--- NOTE | 2025-02-22 15:13 | P.SLEEP ---
History of Present Illness DATE: 02/22/2025 CONSULTATION/NEW PATIENT EVALUATION HISTORY OF PRESENT ILLNESS/SLEEP-WAKE EVALUATION: 59-year-old lady had been e valuated in the sleep center for possible obstructive sleep apnea hypopnea syndrome. SLEEP SCHEDULE: Usually sleep schedule from 911 PM until 68 AM. FALLING ASLEEP: Sometimes patient has difficulties with falling asleep. DURING SLEEP: Patient snores, clench her teeth, wakes up from sleep 2 times. No history of hypnogogical hallucinations, sleep paralysis, or cataplexy. DURING THE DAY/WAKE STATE: In the morning patient wake up tired, has problems in memory, irritability, depression. [place] sleepiness scale is 0. Patient may take 1 nap during the day. PAST MEDICAL HISTORY: Depression, factor V Leyden deficiency, melanoma of the skin. PAST SURGICAL HISTORY: Surgical treatment for melanoma, . MEDICATIONS: Please see below. SOCIAL HISTORY: Please see below, alcohol consumption occasional. FAMILY HISTORY: Please see below. REVIEW OF SYSTEMS: Snoring, awakenings from sleep. No fevers. No double vision. No recent chest pain. No shortness of breath. No abdominal pain. No bleeding episodes. No blood in urine. No seizure episodes. PHYSICAL EXAMINATION: GENERAL: A pleasant patient without any distress. VITAL SIGNS: Please see below, weight 222.4 pounds, BMI 37.5. HEENT: PERRLA, EOMI. Evaluation of oropharynx showed tongue protrudes midline, low position of soft palate Mallampati 3. NECK: Supple. No JVD. Thyroid is not palpable. 14.5 inches in circumference. LUNGS: Clear to percussion and to auscultation. Good air exchange. No wheezing or rhonchi. HEART: S1, S2 regular. No murmurs, gallops or rubs. ABDOMEN: Soft and nontender. Bowel sounds are present. No organomegaly appreciated. EXTREMITIES: No clubbing or cyanosis. EDGE GLUER: Awake, alert, and oriented x3. Cranial nerves 2 to 7 intact. There is no fasciculation or atrophy noted. No focal deficits observed. ASSESSMENT: 1. Snoring, awakenings from sleep, low position of soft palate Mallampati 3. Obstructive sleep apnea hypopnea syndrome. 2. Obesity, BMI 37.5. 3. Factor V Leyden deficiency. 4. Depression. 5. Status post surgical treatment for melanoma 2020. 6 . Status post . PLAN: 1. Polysomnography for evaluation of patient's breathing during sleep. 2. Following plan after reading sleep study. 3. Preferable position during sleep on the side. 4. No driving if patient feels any sleepiness. Patient is aware of civil and criminal liability for unsafe driving. 5. Sleep hygiene with regular sleep time for at least 7.5-8 hours. 6. Watching and losing weight. Thank you very much for referring this patient for consultation. Sincerely, Armaan Pollard MD, PhD, FAASM. Diplomat of [place] [employer], Sleep Medicine Board by [place] [employer] Biomedical Analytical Scientist of [facility] [place] cc: Juan Man MD Past Medical History Past Medical History: Thyroid Disorder Additional Past Medical History / Comment(s): factor V deficiency, alpha 1, MTHFR, Hoshimoto's, melanoma - upper left chest, insomnia, seasonal allergies, Depression, migraines History of Any Multi-Drug Resistant Organisms: None Reported Past Surgical History: Section, Cholecystectomy, Tonsillectomy Additional Past Surgical History / Comment(s): Melanoma - left chest Past Anesthesia/Blood Transfusion Reactions: No Reported Reaction Past Psychological History: Depression Additional Psychological History / Comment(s): My counselor said I might have some anxiety but not actually diagnosed. Smoking Status: Never smoker Past Alcohol Use History: Rare Past Drug Use History: None Reported - Past Family History Father Family Medical History: COPD Additional Family Medical History / Comment(s): Alpha 1, Mother Additional Family Medical History / Comment(s): Degenerative disc disease - back, neck issues Medications and Allergies Home Medications Medication Instructions Recorded Confirmed Type Cetirizine HCl [Zyrtec] 10 mg PO HS 07/20/19 11/09/24 History Cholecalciferol (Vitamin D3) 50 mcg PO DAILY 07/20/19 11/09/24 History [Vitamin D3] Aspirin EC [Ecotrin Low Dose] 81 mg PO HS 10/31/24 02/22/25 History Folic Acid 800 mcg PO DAILY 10/31/24 02/22/25 History Magnesium Oxide [Magnesium] 500 mg PO DAILY 10/31/24 02/22/25 History Melatonin 10 mg PO HS 10/31/24 02/22/25 History Multi-Source Potassium(Otc) 1 tab PO DAILY 10/31/24 11/09/24 History Multivit with Calcium,Iron,Min 1 tab PO DAILY 10/31/24 11/09/24 History [Women's Multivitamin] Rivaroxaban [Xarelto] 10 mg PO HS 10/31/24 11/09/24 History buPROPion XL [Wellbutrin XL] 300 mg PO DAILY 10/31/24 11/09/24 History methocarbamoL [Robaxin] 500 mg PO HS 10/31/24 11/09/24 History traZODone HCL 100 mg PO HS 10/31/24 11/09/24 History Butalb/APAP/Caff 50-325-40Mg 1 tab PO Q6H PRN 11/09/24 11/09/24 History [Fioricet 50-325-40] Levothyroxine Sodium [Synthroid] 125 mcg PO DAILY@0630 11/09/24 02/22/25 History Cetirizine HCl 10 mg PO DAILY 02/22/25 02/22/25 History Rivaroxaban [Xarelto] 10 mg PO DAILY 02/22/25 02/22/25 History buPROPion HCL [buPROPion HCL Xl] 300 mg PO DAILY 02/22/25 02/22/25 History traZODone HCL 100 mg PO DAILY 02/22/25 02/22/25 History Allergies Allergy/AdvReac Type Severity Reaction Status Date / Time No Known Allergies Allergy Verified 11/09/24 11:54 Physical Exam Vitals: Vital Signs Temp Pulse Resp BP Pulse Ox 02/22/25 14:45 98.0 F 77 16 117/86 98 Intake and Output 02/22/25 02/22/25 02/22/25 06:59 14:59 22:59 Other: Weight 100.811 kg Sleep Note - Sleep Data ESS Total: 0 - Sleep Note Sleep Note: Temperature: 98.0 F Pulse Rate: 77 Respiratory Rate: 16 Blood Pressure: 117/86 SpO2: 98 Height: 5 ft 4.5 in Weight: 100.811 kg BMI: Neck Circumference: 14.5
== END ==
LOC: 3 N SLEEP 14:18
PROVIDERS: ATTEND Internal Medicine
DX: G47.33 Obstructive sleep apnea (adult) (pediatric) (principal); E66.9 Obesity, unspecified; F32.A Depression, unspecified; Z98.890 Other specified postprocedural states; Z90.49 Acquired absence of other specified parts of digestive tract; Z68.37 Body mass index [BMI] 37.0-37.9, adult
CPT/HCPCS: 99211

== ENCOUNTER → 2025-04-03 | Outpatient (CLI) | payer OTHER ==
--- NOTE | 2025-04-06 16:14 | P.PCN ---
Description of Procedure: CLINICAL: A home sleep apnea test has been done for confirmation of possible obstructive sleep apnea-hypopnea syndrome. DESCRIPTION OF PROCEDURE: RESULTS: Recording time was 7 hours 35 minutes. Evaluation time was 7 hours 19 minutes. Evaluation time is sufficient for making conclusion about results of the test. Raw data of sleep recording has been reviewed and is adequate. Respiratory channel showed 1 apneas and 6 hypopneas. Apnea-hypopnea index was 1.0 per hour. Pulse rate in the range between minimum 55, maximum 167, average 64 by computer calculation. IMPRESSION: 1. No significant respiratory abnormalities have been documented during the sleep study. Please see other impressions from consultation. PLAN: 1. Sleep hygiene with regular time in bed for at least 8 hours.. 2. Watching and losing weight. 3. No driving if feeling any sleepiness. Thank you very much for allowing me to participate in the management of your patient. Sincerely, Armaan Pollard MD, PhD, FAASM Diplomat of [employer] Sleep Medicine Board of [place] [employer] Taxi Driver [facility] [place] cc: Juan Man MD
== END ==
LOC: 3 N SLEEP 11:07
PROVIDERS: ATTEND Internal Medicine
DX: G47.33 Obstructive sleep apnea (adult) (pediatric) (principal)